=== PATIENT | female | born 1985 | race African-American/Black ===

== ENCOUNTER 2019-04-08 21:30 | Emergency (ER) | payer MEDICAID, OTHER | END 2019-04-08 23:00 | disposition left against medical advice (07) | LOC: ER 21:30 | DX: Z53.21 Procedure and treatment not carried out due to patient leaving prior to being seen by health care provider (principal) ==

== ENCOUNTER 2019-05-06 19:48 | Emergency (ER) | payer MEDICAID ==
[~2019-05-06] VITALS: Ht 170.2 cm; Wt 94.0 kg
[2019-05-06 22:35] VITALS: BP 115/73
== END 2019-05-06 23:17 | disposition home or self-care (01) ==
LOC: ER 19:48
DX: K52.9 Noninfective gastroenteritis and colitis, unspecified (principal); Z98.890 Other specified postprocedural states
CPT/HCPCS: 99283

== ENCOUNTER 2019-11-25 18:55 | Emergency (ER) | payer MEDICAID, OTHER ==
[~2019-11-25] VITALS: Ht 170.2 cm; Wt 94.0 kg
[2019-11-25] MEDS ORDERED: CEFTRIAXONE SODIUM 250 MG/VIAL IM ONE (20:30)
[2019-11-25] MEDS ORDERED: AZITHROMYCIN 500 MG TABLET PO ONE (20:30)
[2019-11-25] MEDS ORDERED: LIDOCAINE HCL 1% 20ML VIAL (Pyxis) INJ INFIL ONE (20:30)
[2019-11-25 21:08] VITALS: BP 128/76
== END 2019-11-25 21:09 | disposition home or self-care (01) ==
LOC: ER 18:55
DX: J02.9 Acute pharyngitis, unspecified (principal); K12.2 Cellulitis and abscess of mouth; Z20.2 Contact with and (suspected) exposure to infections with a predominantly sexual mode of transmission; Z98.890 Other specified postprocedural states
CPT/HCPCS: 87070; 87430; 96372; 99283; J0696; J3490

== ENCOUNTER 2020-03-23 11:34 | Emergency (ER) | payer OTHER ==
[~2020-03-23] VITALS: Ht 170.2 cm; Wt 77.0 kg
[2020-03-23 12:27] LABS: CLARITY URINE CLEAR (CLEAR); COLOR URINE YELLOW (YELLOW); KETONES URINE TRACE (NEGATIVE); LEUKOCYTE ESTERASE URINE 2+ (NEGATIVE); NITRITE URINE NEGATIVE (NEGATIVE); OCCULT BLOOD URINE 2+ (NEGATIVE); PH URINE 6.5 (4.5-8.0); PROTEIN URINE NEGATIVE (NEGATIVE); SPECIFIC GRAVITY URINE 1.021 (1.005-1.030)
[2020-03-23 13:47] LABS: BASOPHILS % 0.5 % (0.0-2.0); EOSINOPHILS % 0.8 % (0.0-5.0); HEMATOCRIT. 37.9 % (36.0-48.0); HEMOGLOBIN. 12.9 g/dL (12.0-16.0); LYMPHOCYTES % 13.1 % (20.0-50.0); MEAN CORPUSCULAR HEMOGLOBIN 30.4 pg (28.0-32.0); MEAN CORPUSCULAR VOLUME 89.1 fL (81.0-99.0); MEAN PLATELET VOLUME 7.4 fl (7.4-10.4); MONOCYTES % 10.4 % (2.0-8.0); NEUTROPHILS % 75.2 % (40.0-76.0); PLATELET 264 x1000/uL (130-400); RED BLOOD CELL COUNT 4.25 mill/uL (4.2-5.4); RED CELL DISTRIBUTION WIDTH 13.7 % (11.6-14.6)
[2020-03-23 13:57] LABS: CHLORIDE 107 mEq/L (98-107)
[2020-03-23 14:08] LABS: B-HCG QUANTITATIVE 347 mIU/mL (<3)
[2020-03-23 14:28] VITALS: BP 131/82
[2020-03-29 05:09] LABS: NEISSERIA GONORRHOEAE NAA Negative (Negative)
== END 2020-03-23 14:30 | disposition home or self-care (01) ==
LOC: ER 11:34
DX: N39.0 Urinary tract infection, site not specified (principal)
CPT/HCPCS: 36415; 76801; 76817; 80053; 81003; 81025; 84702; 85025; 86900; 86901; 87077; 87086; 87430; 87491; 87591; 99284; Z7610

== ENCOUNTER 2020-05-05 23:11 | Emergency (ER) | payer OTHER ==
[~2020-05-05] VITALS: Ht 170.2 cm; Wt 80.0 kg
[2020-05-06] MEDS ORDERED: IBUPROFEN 800MG TABLET PO ONE (03:00)
[2020-05-06 03:36] VITALS: BP 120/82
== END 2020-05-06 04:18 | disposition home or self-care (01) ==
LOC: ER 23:33
DX: S52.592A Other fractures of lower end of left radius, initial encounter for closed fracture (principal); W01.0XXA Fall on same level from slipping, tripping and stumbling without subsequent striking against object, initial encounter; Y93.89 Activity, other specified; Y92.89 Other specified places as the place of occurrence of the external cause
CPT/HCPCS: 29125; 73090; 73110; 73130; 99284

== ENCOUNTER 2021-05-11 12:01 | Emergency (ER) | payer OTHER ==
[~2021-05-11] VITALS: Ht 170.2 cm; Wt 80.0 kg
[2021-05-11 12:07] VITALS: BP 123/85
[2021-05-11] MEDS ORDERED: ACETAMINOPHEN 325MG TABLET PO ONE (12:15)
[2021-05-11] MEDS ORDERED: IBUPROFEN 600MG TABLET PO ONE (12:15)
[2021-05-11] MEDS ORDERED: NAPR-1176 MT (13:49)
[2021-05-11] MEDS ORDERED: TOPUD MT (13:49)
[2021-05-11] MEDS ORDERED: DOXY100C5 MT (16:17)
[2021-05-11] MEDS ORDERED: NITR-87 MT (16:17)
[2021-05-11] MEDS ORDERED: METR500T MT (16:17)
== END 2021-05-11 14:26 | disposition home or self-care (01) ==
LOC: ER 12:01
DX: M25.572 Pain in left ankle and joints of left foot (principal); Z98.890 Other specified postprocedural states
CPT/HCPCS: 73610; 73630; 99284

== ENCOUNTER 2021-05-11 14:34 | Emergency (ER) | payer OTHER ==
[~2021-05-11] VITALS: Ht 167.6 cm; Wt 79.0 kg
[~2021-05-11 14:34] MED LIST: NAPR-1176 MT; TOPUD MT
[2021-05-11 14:39] VITALS: BP 135/89
[2021-05-11] MEDS ORDERED: DOXYCYCLINE HYCLATE 100MG CAPSULE PO ONE (14:45)
[2021-05-11] MEDS ORDERED: LIDOCAINE HCL 1% 20ML VIAL (Pyxis) INJ INFIL ONE (14:45)
[2021-05-11] MEDS ORDERED: CEFTRIAXONE SODIUM 500 MG/VIAL IM ONE (14:45)
[2021-05-11 16:03] LABS: CLARITY URINE TURBID (CLEAR); COLOR URINE RED (YELLOW); KETONES URINE NEGATIVE (NEGATIVE); LEUKOCYTE ESTERASE URINE 2+ (NEGATIVE); NITRITE URINE POSITIVE (NEGATIVE); OCCULT BLOOD URINE 2+ (NEGATIVE); PH URINE 7.5 (4.5-8.0); PROTEIN URINE 2+ (NEGATIVE); UROBILINOGEN URINE 0.2 E.U./dL (0.2-1.0)
[2021-05-11] MEDS ORDERED: METR500T MT (16:17)
[2021-05-11] MEDS ORDERED: DOXY100C5 MT (16:17)
[2021-05-11] MEDS ORDERED: NITR-87 MT (16:17)
== END 2021-05-11 16:29 | disposition home or self-care (01) ==
LOC: ER 14:34
DX: N30.00 Acute cystitis without hematuria (principal); N89.8 Other specified noninflammatory disorders of vagina; Z98.890 Other specified postprocedural states
CPT/HCPCS: 81003; 81025; 87210; 96372; 99284; J0696; J3490

== ENCOUNTER 2021-12-27 11:36 | Emergency (ER) | payer OTHER ==
[~2021-12-27] VITALS: Ht 170.2 cm; Wt 76.0 kg
[~2021-12-27 11:36] MED LIST changes: +DOXY100C5 MT; +METR500T MT; +NITR-87 MT
[2021-12-27 11:42] VITALS: BP 137/92
[2021-12-27] MEDS ORDERED: DOXY100C5 MT (17:30)
== END 2021-12-27 14:16 | disposition left against medical advice (07) ==
LOC: ER 11:36
DX: Z53.21 Procedure and treatment not carried out due to patient leaving prior to being seen by health care provider (principal)

== ENCOUNTER 2021-12-27 14:41 | Emergency (ER) | payer OTHER ==
[~2021-12-27] VITALS: Ht 170.2 cm; Wt 76.0 kg
[2021-12-27 14:45] VITALS: BP 136/89
[2021-12-27] MEDS ORDERED: CEFTRIAXONE SODIUM 500 MG/VIAL IM ONE (16:45)
[2021-12-27] MEDS ORDERED: DOXYCYCLINE HYCLATE 100MG CAPSULE PO ONE (16:45)
[2021-12-27 16:56] LABS: CLARITY URINE CLOUDY (CLEAR); COLOR URINE YELLOW (YELLOW); KETONES URINE NEGATIVE (NEGATIVE); LEUKOCYTE ESTERASE URINE 2+ (NEGATIVE); NITRITE URINE NEGATIVE (NEGATIVE); OCCULT BLOOD URINE NEGATIVE (NEGATIVE); PROTEIN URINE NEGATIVE (NEGATIVE); SPECIFIC GRAVITY URINE 1.023 (1.005-1.030); UROBILINOGEN URINE 0.2 E.U./dL (0.2-1.0)
[2021-12-27] MEDS ORDERED: DOXY100C5 MT (17:30)
== END 2021-12-27 17:36 | disposition home or self-care (01) ==
LOC: ER 14:41
DX: N30.00 Acute cystitis without hematuria (principal); Z20.2 Contact with and (suspected) exposure to infections with a predominantly sexual mode of transmission; Z98.890 Other specified postprocedural states
CPT/HCPCS: 81003; 81025; 96372; 99283; J0696